=== PATIENT | female | born 1945 ===

== ENCOUNTER 2018-12-29 23:04 | Emergency (ER) | payer MEDICARE ==
[2018-12-29] MEDS ORDERED: Sodium Chloride 0.9% 1,000 ML IV STA (23:45)
[2018-12-30 00:46] LABS: BASO % 0.3 % (0.0-2.0); EOS # 0.1 K/uL (0.0-0.7); EOS % 0.7 % (0.0-4.0); HEMOGLOBIN 13.4 g/dL (12.0-16.0); LYMPH # 1.1 K/uL (1.0-4.3); LYMPH % 9.2 % (20.0-40.0); MEAN CELL VOLUME 82.5 fl (81.0-99.0); MEAN CORPUSCULAR HEMOGLOBIN 27.3 pg (27.0-31.0); MEAN CORPUSCULAR HGB CONC 33.1 g/dL (33.0-37.0); MEAN PLATELET VOLUME 7.4 fl (7.2-11.7); MONO # 0.7 K/uL (0.0-0.8); MONO % 6.1 % (0.0-10.0); NEUT # 9.8 K/uL (1.8-7.0); NEUT % 83.7 % (50.0-75.0); PLATELET COUNT 309 K/uL (130-400); RBC 4.91 Mil/uL (3.80-5.20); RED CELL DISTRIBUTION WIDTH 14.1 % (11.5-14.5); WHITE BLOOD COUNT 11.7 K/uL (4.8-10.8)
--- NOTE | 2018-12-30 01:08 | ED PDOC ---
HPI: Female Pain Time Seen by Provider: 12/29/18 23:15 Chief Complaint (Nursing): Female Genitourinary Chief Complaint (Provider): Female Genitourinary History Per: Patient History/Exam Limitations: no limitations Onset/Duration Of Symptoms: Days (1) Current Symptoms Are (Timing): Still Present Additional Complaint(s): 73 year old female presents to the ED for an evaluation of worsening pain upon urination onset for one day. She reports of suprapubic pain with dark urine. Otherwise, she denies sick contacts, any urinary tract infection in the past, vaginal bleeding or vaginal discharge. PMD: she cannot remember her PMD but she sees her yearly Abnormal Vaginal Bleeding: No Past Medical History Reviewed: Historical Data, Nursing Documentation, Vital Signs Vital Signs: Last Vital Signs Temp 98.5 F 12/29/18 23:13 Pulse 120 H 12/29/18 23:13 Resp 18 12/29/18 23:13 BP 172/95 H 12/29/18 23:13 Pulse Ox 99 12/29/18 23:13 - Medical History PMH: No Chronic Diseases - Family History Family History: States: Unknown Family Hx - Home Medications Home Medications: Ambulatory Orders Medication Instructions Recorded Sulfamethoxazole/Trimethoprim 1 tab PO BID #20 tab 12/30/18 [Bactrim DS 800 mg-160 mg] - Allergies Allergies/Adverse Reactions: Allergies Allergy/AdvReac Type Severity Reaction Status Date / Time Penicillins Allergy RASH Verified 12/29/18 23:08 Review of Systems ROS Statement: Except As Marked, All Systems Reviewed And Found Negative Gastrointestinal: Positive for: Abdominal Pain. Negative for: Vomiting, Diarrhea Genitourinary Female: Positive for: Dysuria. Negative for: Vaginal Discharge, Vaginal Bleeding Physical Exam - Reviewed Nursing Documentation Reviewed: Yes Vital Signs Reviewed: Yes - Physical Exam Appears: Positive for: Well, Non-toxic, No Acute Distress Head Exam: Positive for: ATRAUMATIC, NORMAL INSPECTION, NORMOCEPHALIC Skin: Positive for: Normal Color, Warm, Dry. Negative for: Rash Eye Exam: Positive for: EOMI, Normal appearance, PERRL ENT: Positive for: Normal ENT Inspection Neck: Positive for: Normal, Painless ROM, Supple. Negative for: Decreased ROM Cardiovascular/Chest: Positive for: Regular Rate, Rhythm. Negative for: Murmur Respiratory: Positive for: Normal Breath Sounds. Negative for: Decreased Breath Sounds, Respiratory Distress Gastrointestinal/Abdominal: Positive for: Tenderness (suprapubic ) Back: Positive for: L CVA Tenderness, R CVA Tenderness - Laboratory Results Result Diagrams: 12/29/18 23:59 12/29/18 23:59 - ECG O2 Sat by Pulse Oximetry: 99 (RA) Pulse Ox Interpretation: Normal Medical Decision Making Medical Decision Making: Time: 000 Impression: workup for urinary tract infection and pyelonephritis vs other causes. Basic labs, urine culture, UA, Toradol for pain, bladder US based on dark urine, renal US to assess for structural abnormalities. Will consider a bdominal pelvis if US is unremarkable and reassess patient. Plan: BMP CBC w/ differential Normal saline 1000 mls/hr Blood culture Urine culture UA Bladder only/ residual urine US Renal US Reevaluation 033 EXAM: US Bladder. CLINICAL HISTORY: GROSS HEMATURIA FLANK PAIN (Hx) TECHNIQUE: Real-time bladder ultrasound (complete) with image documentation. COMPARISON: None provided. FINDINGS: BLADDER: Bladder demonstrates a prevoid volume of 542 cc. There is no bladder wall thickening. There is no focal bladder lesion identified. No bladder calculi are seen. MISCELLANEOUS: There is a large post-void residual of 358 cc. Both ureteral jets are seen. IMPRESSION: 1. Bladder demonstrates a prevoid volume of 542 cc. 2. There is a large post-void residual of 358 cc. 3. Both ureteral jets are seen. 4. There is no bladder wall thickening. 5. There is no focal bladder lesion identified. 6. No bladder calculi are seen. 0337 EXAM: US Retroperitoneum, Renal. CLINICAL HISTORY: GROSS HEMATURIA & FLANK PAIN TECHNIQUE: Real-time ultrasound of the retroperitoneum with image documentation. COMPARISON: None provided. FINDINGS: RIGHT KIDNEY: Right kidney measures 9.5 cm. The right kidney demonstrates hydronephrosis. LEFT KIDNEY: Left kidney measures 9.1 cm. BLADDER: Unremarkable as visualized. MISCELLANEOUS: There is a right lower pole cyst measuring 1.6 cm in rightest dimension. No focal solid renal lesions are seen bilaterally. IMPRESSION: 1. There is a right lower pole cyst measuring 1.6 cm in rightest dimension. 2. Right kidney measures 9.5 cm. 3. Left kidney measures 9.1 cm. 4. The right kidney demonstrates hydronephrosis. 5. No focal solid renal lesions are seen bilaterally. Scribe Attestation: Documented by Kylie Leonard, acting as a scribe for Stacia Carroll MD Provider Scribe Attestation: All medical record entries made by the Scribe were at my direction and personally dictated by me. I have reviewed the chart and agree that the record accurately reflects my personal performance of the history, physical exam, medical decision making, and the department course for this patient. I have also personally directed, reviewed, and agree with the discharge instructions and disposition. Disposition - Clinical Impression Clinical Impression: Urinary tract infection - Disposition Referrals: Valerie Barlow MD [Medical Doctor] - Disposition: Routine/Home Disposition Time: 04:53 Condition: IMPROVED Additional Instructions: Increase hydration. Take antibiotics twice per day for 10 days. Take Tylenol for pain. Return to the emergency department if symptoms worsen or if new symptoms develop. Prescriptions: Sulfamethoxazole/Trimethoprim [Bactrim DS 800 mg-160 mg] 1 tab PO BID #20 tab Instructions: Urinary Tract Infection, Adult (DC), Kidney Infection (DC) Forms: [employer] (Arabic), [employer] (Trinidadian) Print Language: SERBIAN
[2018-12-30 01:11] LABS: BLOOD UREA NITROGEN 20 mg/dl (7-17); CALCIUM 9.6 mg/dL (8.4-10.2); GFR NON-AFRICAN AMERICAN > 60
[2018-12-30 01:22] LABS: URINE BACTERIA MOD (<OCC); URINE BILIRUBIN NEGATIVE (NEGATIVE); URINE BLOOD MODERATE (NEGATIVE); URINE CLARITY TURBID (Clear); URINE COLOR AMBER (YELLOW); URINE GLUCOSE (UA) NEG (NEGATIVE); URINE LEUKOCYTE ESTERASE MOD Leu/uL (Negative); URINE PROTEIN 100 mg/dL (NEGATIVE); URINE UROBILINOGEN 0.2-1.0 mg/dL (0.2-1.0)
[2018-12-30] MEDS ORDERED: Tmp-Smz 800 mg-160 mg DS Tab PO STA (02:35)
[2018-12-30] MEDS ORDERED: Tmp-Smz 800 mg-160 mg DS Tab ONE (02:52)
[2018-12-30 03:43] LABS: BASOPHIL 1 % (0-2); EOSINOPHIL 1 % (0-7); LARGE PLATELETS PRESENT; LYMPHOCYTE 14 % (20-50); MONOCYTE 4 % (0-10); NEUTROPHIL 80 % (42-75); PLATELET ESTIMATE NORMAL (NORMAL); TOTAL CELLS COUNTED 100; TOXIC GRANULATION PRESENT
[2018-12-30 06:12] VITALS: BP 116/58; PULSE 99; RESP 16; TEMP 99.4
--- NOTE | 2018-12-30 11:02 | US ---
Date of service: 12/30/2018 PROCEDURE: Ultrasound of the Kidneys HISTORY: gross hematuria and flank pain COMPARISON: None available. TECHNIQUE: Sonogram of the kidneys. FINDINGS: RIGHT KIDNEY: Measures: 9.5 x 4.8 x 4.8 cm. Lower pole cyst measuring 1.5 x 1.6 x 1.0 cm. Normal in size, contour and echogenicity. No stone, solid mass lesion or hydronephrosis visualized. LEFT KIDNEY: Measures: 9.1 x 5.1 x 5.4 cm. Normal in size, contour and echogenicity. No stone, solid mass lesion or hydronephrosis visualized. OTHER FINDINGS: None. IMPRESSION: Right lower pole renal cyst. Otherwise, unremarkable renal ultrasound.
--- NOTE | 2018-12-30 11:03 | US ---
Date of service: 12/30/2018 PROCEDURE: Ultrasound of the Bladder HISTORY: gross hematuria COMPARISON: None available. TECHNIQUE: Sonographic evaluation of the bladder was performed. FINDINGS: Unremarkable without wall thickening or intraluminal debris. No calculus or gross mass lesion. No free fluid in pelvis. Bilateral ureteral jets were visualized. Prevoid Volume: 542 cc. Post void residual: 358 cc. IMPRESSION: Significant postvoid residual volume..
[2019-01-05 10:47] VITALS: O2SAT 99
== END 2018-12-30 05:05 | disposition home or self-care (01) ==
LOC: H.ER 23:04
DX: N39.0 Urinary tract infection, site not specified (principal); Z88.0 Allergy status to penicillin
CPT/HCPCS: 76770; 76857; 80048; 81003; 85025; 87040; 87086; 87181; 96361; 96374; 99284; J1885; J7030